=== PATIENT | male | born 1990 | race Caucasian/White ===

== ENCOUNTER 2021-03-22 07:22 | Inpatient (IN) | payer MEDICAID ==
[~2021-03-22 07:22] MED LIST: Dexamethasone 4 MG/ML SDV ONE; Glycopyrrolate 0.2 MG/ML 5 ML MDV ONE; Midazolam 1 MG/ML 2 ML SDV ONE; Ondansetron 4 MG/2 ML SDV ONE; Propofol 200 MG/20 ML SDV ONE; Rocuronium 50 MG/5 ML Vial ONE; cefOXitin 2 GM Vial ONE; fentaNYL 250 MCG/5 ML SDV ONE
[2021-03-22] MEDS ORDERED: Acetaminophen 500 MG Tab PO ONE (07:45)
[2021-03-22] MEDS ORDERED: Celecoxib 200 MG Cap PO ONE (08:00)
[2021-03-22] MEDS ORDERED: Dextrose 5%-Lactated Ringers 1,000 ML IV SCH ×2 (08:00→13:30)
[2021-03-22 08:20] LABS: HEMOGLOBIN A1C 5.5 % (4.5-6.2)
[2021-03-22] MEDS ORDERED: Albuterol/Ipratropium 3.0-0.5 MG/3 ML Neb Soln NEB ONE (09:00)
[2021-03-22] MEDS ORDERED: Scopolamine 1.5 MG Transdermal Patch TOP SCH (09:00)
[2021-03-22] MEDS ORDERED: cefOXitin 2 GM in Sodium Chloride 0.9% 50 ML IV ONE (09:15)
[2021-03-22] MEDS ORDERED: Ketamine 20 MG in Sodium Chloride 0.9% 19.8 ML IV SCH (09:30)
[2021-03-22] MEDS ORDERED: Ketamine 500 MG/5 ML MDV IV SCH (09:30)
[2021-03-22] MEDS ORDERED: Rocuronium 50 MG/5 ML Vial ONE ×2 (09:52→10:46)
[2021-03-22] MEDS ORDERED: Sugammadex Sodium 200 MG/2 ML VIAL ONE (10:46)
[2021-03-22] MEDS ORDERED: fentaNYL 100 MCG/2 ML SDV ONE ×2 (10:51→11:51)
[2021-03-22] MEDS ORDERED: Labetalol 20 MG/4 ML Syringe ONE (11:20)
[2021-03-22] MEDS ORDERED: Propofol 200 MG/20 ML SDV ONE (11:52)
[2021-03-22] MEDS ORDERED: Insulin Lispro 100 Unit/ML 3 ML KwikPen SUBCUT ONE (12:29)
[2021-03-22] MEDS ORDERED: 50% Dextrose in Water 50 ML Syringe IVPUSH PRN ×2 (12:29→14:00)
[2021-03-22] MEDS ORDERED: Glucagon,Human Recombinant 1 MG Vial IM PRN ×2 (12:29→14:00)
[2021-03-22] MEDS ORDERED: fentaNYL 100 MCG/2 ML SDV IVPUSH ONE (12:32)
[2021-03-22] MEDS ORDERED: hydrOXYzine HCL 100 MG/2 ML SDV IM ONE (12:32)
[2021-03-22] MEDS ORDERED: Cyclobenzaprine 10 MG Tab PO PRN (13:34)
[2021-03-22] MEDS ORDERED: Albuterol/Ipratropium 3.0-0.5 MG/3 ML Neb Soln INH PRN (13:37)
[2021-03-22] MEDS ORDERED: Lactated Ringers 1,000 ML IV SCH (13:45)
[2021-03-22] MEDS ORDERED: Acetaminophen 500 MG Tab PO PRN (14:00)
[2021-03-22] MEDS ORDERED: Metoclopramide 10 MG/2 ML SDV IVPUSH PRN (14:00)
[2021-03-22] MEDS ORDERED: diphenhydrAMINE 50 MG/ML SDV IVPUSH PRN (14:00)
[2021-03-22] MEDS ORDERED: Ondansetron 4 MG/2 ML SDV IVPUSH PRN (14:00)
[2021-03-22] MEDS ORDERED: HYDROmorphone 1 MG/ML Syringe IV PRN (14:00)
[2021-03-22] MEDS ORDERED: hydrOXYzine HCL 100 MG/2 ML SDV IM PRN (14:00)
[2021-03-22] MEDS ORDERED: HYDROmorphone 0.5 MG/0.5 ML Syringe IVPUSH PRN (14:00)
[2021-03-22] MEDS: Labetalol 20 MG/4 ML Syringe IVPUSH PRN ×2 (14:11→14:26)
[2021-03-22] MEDS: traMADol 50 MG Tab PO PRN ×2 (14:43→21:49)
[2021-03-22] MEDS: Acetaminophen 500 MG Tab PO SCH ×2 (15:49→23:05)
[2021-03-22] MEDS: Pantoprazole 40 MG Vial IVPUSH SCH (15:49)
[2021-03-22] MEDS: cefOXitin 2 GM in Sodium Chloride 0.9% 50 ML IV SCH ×2 (15:55→21:03)
[2021-03-22] MEDS ORDERED: MVI, Adult with Vitamin K 10 ML, Thiamine 200 MG, Zinc/Copper/Manganese/Selenium 1 ML i... IV SCH ×4 (16:00)
[2021-03-22] MEDS: Insulin Lispro 100 Unit/ML 3 ML KwikPen SUBCUT SCH ×2 (16:40→21:45)
[2021-03-22] MEDS: oxyCODONE 5 MG Tab PO PRN (17:41)
[2021-03-22] MEDS: Heparin Sodium 5,000 Units/ML Vial SUBCUT SCH (21:02)
[2021-03-22] MEDS: Montelukast 10 MG Tab PO SCH (21:02)
[2021-03-23] MEDS ORDERED: Iopamidol 612 MG/ML 50 ML SDV PO STA (03:19)
[2021-03-23] MEDS: traMADol 50 MG Tab PO PRN ×2 (03:55→20:57)
[2021-03-23] MEDS: cefOXitin 2 GM in Sodium Chloride 0.9% 50 ML IV SCH ×4 (03:56→21:04)
[2021-03-23] MEDS: Insulin Lispro 100 Unit/ML 3 ML KwikPen SUBCUT SCH ×4 (04:35→21:01)
[2021-03-23] MEDS ORDERED: Ondansetron 4 MG Tab.DIS PO PRN (07:24)
--- NOTE | 2021-03-23 07:25 | PCM.SURGPN ---
- General Info Date of Service: 03/23/21 Date of Surgery/Procedure: 03/22/21 POD#: 2 Functional Status: Reports: Pain Controlled - Review of Systems General: Denies: Fever, Weakness, Chills HEENT: Reports: No Symptoms Pulmonary: Denies: Shortness of Breath, Cough Gastrointestinal: Denies: Nausea, Vomiting Genitourinary: Denies: Dysuria, Frequency, Urgency Systems Review Comment:: Patient is post-op day 2 laparoscopic Toña-en-Y gastric bypass. His pain is controlled and tolerating step 1 diet. Oral intake is 345 mL and output 1775 mL. Vitals and blood sugar have been stable. - Patient Data Vitals - Most Recent: Last Vital Signs Temp 99.1 F 03/23/21 07:00 Pulse 106 H 03/23/21 07:00 Resp 18 03/23/21 07:00 BP 152/90 H 03/23/21 07:00 Pulse Ox 94 L 03/23/21 07:00 Weight - Most Recent: 306 lb 6 oz I&O - Last 24 Hours: Intake & Output 03/22/21 03/23/21 03/23/21 22:59 06:59 14:59 Intake Total 864 1148 Output Total 1010 805 Balance -146 343 Lab Results Last 24 Hrs: - Exam Wound/Incisions: Dressing Dry and Intact General: Alert, Oriented, Cooperative Lungs: Clear to Auscultation, Normal Respiratory Effort Cardiovascular: Regular Rate, Regular Rhythm Extremities: Normal Inspection Skin: Warm, Dry, Intact Physical Findings Comment:: BIRDIE drain put out 60 mL of a light pink fluid. Sepsis Event Note - Evaluation Sepsis Screening Result: No Definite Risk - Focused Exam Vital Signs: Vital Signs Temp Temp Pulse Resp BP Pulse Ox 03/23/21 07:00 99.1 F 106 H 18 152/90 H 94 L 03/23/21 03:25 99.4 F 18 154/93 H 94 L 03/22/21 23:02 99.1 F 95 16 141/75 H 93 L 03/22/21 19:34 98.8 F 97 18 142/81 H 92 L - Problem List Review Problem List Initiated/Reviewed/Updated: Yes - My Orders Last 24 Hours: - Assessment Assessment (Free Text/Narrative):: 1. Laparoscopic Gastric Bypass Toña-en-Y - Plan Plan (Free Text/Narrative):: 1. Discontinue Accu-checks 2. Upper GI completed this AM and no concerns noted. 3. May advanced to step 2 diet 4. Discontinue D5LR 5. Decrease lactated ringer to 100 ml per hr 6. Following ENERGY protocol 7. Continue ambulating and using incentive spirometry 8. Will follow up in AM or as needed
[2021-03-23] MEDS ORDERED: hydrOXYzine HCl 25 MG Tab PO PRN (07:26)
[2021-03-23] MEDS ORDERED: Lactated Ringers 1,000 ML IV SCH (07:30)
[2021-03-23] MEDS: Acetaminophen 500 MG Tab PO SCH ×3 (07:36→23:22)
--- NOTE | 2021-03-23 07:51 | OR ---
DATE OF PROCEDURE: 03/22/2021 SURGEON: Griffin Quintana MD PREOPERATIVE DIAGNOSIS: Morbid obesity. POSTOPERATIVE DIAGNOSES: 1. Morbid obesity. 2. Marked hepatomegaly. 3. Paraesophageal diaphragmatic hernia. 4. Mediastinal lipoma. 5. Area of stomach ischemic after pouch formation. OPERATIVE PROCEDURES: Diagnostic laparoscopy with: 1. Laparoscopic Toña-en-Y gastric bypass with long limb gastroenterostomy (49447). 2. Rex-Cut needle liver biopsy (42772). 3. Repair of paraesophageal diaphragmatic hernia (73674). 4. Excision of mediastinal lipoma (55654). 5. Partial gastrectomy (72282). ANESTHESIA: General. MULTIGRAPH OPERATOR: LESLY Irby; and LD Myers. INDICATIONS FOR PROCEDURE: This is a 30-year-old male presenting with longstanding morbid obesity, increasingly significant comorbidities. After preoperative evaluation and discussion, he wished to proceed with a gastric bypass procedure. Potential risks of the procedure including bleeding, infection, injury to underlying viscera, problems with bowel obstruction over time, leaks from various GI tract closures were all reviewed along with the remote possibility of cardiopulmonary, septic, or hemorrhagic complications leading to , and the patient wishes to proceed. DETAILS OF PROCEDURE: The patient was taken to the operating room and placed in a supine position. After general endotracheal anesthesia was induced, he was converted to a lithotomy position and the abdomen prepped and draped. 15 cm inferior and 5 cm left of the xiphoid process, a transverse incision was made and the peritoneal cavity entered under direct vision with an Optiview trocar, inflated to 15 mmHg pressure with CO2. Laparoscope was then reinserted. No underlying trocar insertion site injuries were seen. Following this, bilateral transversus abdominis plane blocks were placed and 5 additional trocars were placed across the upper and mid abdomen. The liver was noted to be markedly enlarged and fatty infiltrated. Rex-Cut needle biopsies were obtained from left lobe of liver. Minimal bleeding from the biopsy sites was controlled with electrocautery. At this point, the omentum was divided in the midline up to the level of the transverse colon. This allowed identification of small bowel with ligament of Treitz. Small bowel was then traced out 125 cm distal to that point, where it was divided transversely with a NAHOMI stapler. Small bowel was then traced out additional 150 cm where the [id number] enteroenterostomy was accomplished with an internal firing of the Endo-NAHOMI 60 mm stapler. Common opening was closed transversely with the same stapler and angles anastomosed and mesenteric defect approximated with some 0 Ethibond stitch and fibrin sealant. Divided end of the Toña limb was then from the mesentery for a few centimeters, which allowed an antecolic position of the Toña limb up to the level of the gastroesophageal junction without tension. The liver was then retracted anteriorly. The patient was noted to have a moderate-sized paraesophageal diaphragmatic hernia. This was reduced and the peritoneum overlying it was incised and reflected downward. An anterior repair of the diaphragmatic hernia was then accomplished with 0 Ethibond sutures reinforced with PTFE pledgets. During the course of the dissection, the patient had a fairly large mediastinal lipoma which was excised to facilitate a more adequate repair of the diaphragmatic hernia. At this point, the gastrointestinal balloon catheter was inflated to 15 mL and pulled up snugly against the EG junction, gastric wall over the apex. The balloon was then marked with electrocautery and balloon catheter deflated and pulled up into the esophagus. The lesser omental tissue was then divided adjacent to the cauterized lorena at the gastric cardia allowing dissection behind the stomach at that level. Pouch formation was initiated with a transverse firing of the NAHOMI stapler at the level of the cauterized lorena at the gastric cardia and then continued up to and through the angle of His with additional NAHOMI firing. Upon completion of pouch, both staple lines were noted to be intact. There was an area of ischemia on the edge of the gastric pouch thus requiring additional revision of that with the excision of some additional stomach with a NAHOMI stapler, and that point, all the remaining gastric tissue appeared adequately perfused. The anvil of a 25 mm EEA stapler was then attached to [place] sump type tube. The latter was brought down through the mouth and taken out through a small opening in the gastric pouch, allowing the anvil likewise to be pulled down to within the gastric pouch. The divided end of the Toña limb was then opened and main body of the EEA stapler was passed several centimeters into the lumen of the small bowel, brought up, the anvil united with it, thus creating the gastrojejunostomy. Upon removal of the stapler, double donuts were noted within it. Small bowel was closed off with a vascular staple line. Gastrojejunostomy was then reinforced with some 3-0 Vicryl seromuscular stitch along with fibrin sealant. A leak test was accomplished with injection of 120 mL of air in the gastric pouch while it was submerged with cefoxitin-containing saline solution. No leaks were identified. A 10-Nepali round Amado-Angel drain was then placed through the left lateral trocar site and positioned adjacent to the gastrojejunostomy and from there up into the splenic fossa. The trocars were removed and the peritoneal cavity deflated. The incisions were closed with some 4-0 Vicryl skin stitch, which was also used to fix the drain. The patient was taken to the recovery room in satisfactory condition. Physician planning assistant, Kesha Sanon, played an essential role in assisting in this case, helping to position the patient, retract structures as needed, as well as suturing and cutting sutures when indicated. Her presence improved patient safety and decreased operative time. Griffin Quintana MD /[id number]
[2021-03-23] MEDS: Celecoxib 200 MG Cap PO SCH ×2 (08:47→21:00)
[2021-03-23] MEDS: Heparin Sodium 5,000 Units/ML Vial SUBCUT SCH ×2 (08:49→21:00)
[2021-03-23] MEDS: SCOPOLAMINE PATCH CHECK TOP SCH (09:05)
--- NOTE | 2021-03-23 09:19 | CR ---
[facility]I [facility] HISTORY: Postbariatric surgery FINDINGS: Patient swallowed water-soluble contrast. Upright views of the abdomen show no evidence of extravasation or obstruction. There is a surgical drain in the left upper quadrant. IMPRESSION: Status post bariatric surgery No extravasation or obstruction seen
[2021-03-23] MEDS: oxyCODONE 5 MG Tab PO PRN (15:01)
[2021-03-23] MEDS ORDERED: MVI, Adult with Vitamin K 10 ML, Thiamine 200 MG, Zinc/Copper/Manganese/Selenium 1 ML i... IV SCH ×4 (16:00)
[2021-03-23] MEDS: Pantoprazole 40 MG Vial IVPUSH SCH (16:06)
[2021-03-23] MEDS: Montelukast 10 MG Tab PO SCH (21:00)
[2021-03-24] MEDS: traMADol 50 MG Tab PO PRN ×2 (03:54→09:58)
[2021-03-24] MEDS: Celecoxib 200 MG Cap PO SCH (08:19)
[2021-03-24] MEDS: Acetaminophen 500 MG Tab PO SCH (08:19)
[2021-03-24] MEDS: SCOPOLAMINE PATCH CHECK TOP SCH (08:20)
[2021-03-24] MEDS: Heparin Sodium 5,000 Units/ML Vial SUBCUT SCH (08:20)
[2021-03-24] MEDS ORDERED: Cyanocobalamin (Vitamin B12) 1,000 MCG/ML SDV IM ONE (09:00)
--- NOTE | 2021-03-25 11:51 | DISCH ---
FINAL DIAGNOSES: 1. Morbid obesity. 2. Marked hepatomegaly. 3. Paraesophageal diaphragmatic hernia. 4. Mediastinal lipoma. 5. Area of stomach ischemia, status post formation of gastric pouch. SECONDARY DIAGNOSES: 1. Asthma. 2. Allergic rhinitis. 3. Hyperlipidemia. 4. Prediabetes. 5. History of depression. OPERATIVE PROCEDURES: Done on 03/22, diagnostic laparoscopy with: 1. Laparoscopic Toña-en-Y gastric bypass, long-limb gastrostomy. 2. Rex-Cut needle liver biopsy. 3. Repair of paraesophageal diaphragmatic hernia. 4. Excision of mediastinal lipoma. 5. Partial gastrectomy. SUMMARY: This is a 30-year-old presenting with longstanding morbid obesity. After preoperative evaluation and discussion, he wished with a gastric bypass procedure. This was done on the day of procedure along with the additional procedures being done simultaneously as listed above. Postoperatively, he has had no significant problems with prediabetes monitor his blood sugars for 24 hours postoperatively and they were all in the 134 to 96 range while taking in some diet. Otherwise, the patient tolerated a step-2 diet and was discharged home. He will be on his usual medications other than not having to take Naprosyn but instead take Celebrex as needed for arthritic-type pain. Otherwise, he will take 1 g p.o. q.6 hours p.r.n. and tramadol 50 mg p.o. q.6 hours p.r.n. pain, #18. He will be instructed to stay on the step-2 diet until first appointment which will be with Kesha Sanon at [facility] on Friday on 04/02/2021. /[id number]
== END 2021-03-24 11:05 | disposition home or self-care (01) | DRG 621 ==
LOC: JP.SDS 07:22 → EDSTATUS 08:15 → JP.MS 12:15
PROVIDERS: ADMIT Surgery; ATTEND Surgery
PROC: 0D164ZA Bypass Stomach to Jejunum, Percutaneous Endoscopic Approach (ICD-10-PCS; principal; 2021-03-22)
PROC: 0FB24ZX Excision of Left Lobe Liver, Percutaneous Endoscopic Approach, Diagnostic (ICD-10-PCS; 2021-03-22)
PROC: 0BQT4ZZ Repair Diaphragm, Percutaneous Endoscopic Approach (ICD-10-PCS; 2021-03-22)
PROC: 0DB64ZZ Excision of Stomach, Percutaneous Endoscopic Approach (ICD-10-PCS; 2021-03-22)
DX: E66.01 Morbid (severe) obesity due to excess calories (principal); R16.0 Hepatomegaly, not elsewhere classified; K44.9 Diaphragmatic hernia without obstruction or gangrene; D17.4 Benign lipomatous neoplasm of intrathoracic organs; K31.9 Disease of stomach and duodenum, unspecified; J45.909 Unspecified asthma, uncomplicated; E78.5 Hyperlipidemia, unspecified; F32.A Depression, unspecified; R73.03 Prediabetes; Z88.0 Allergy status to penicillin; Z88.1 Allergy status to other antibiotic agents; G43.909 Migraine, unspecified, not intractable, without status migrainosus; Z98.890 Other specified postprocedural states; Z68.42 Body mass index [BMI] 45.0-49.9, adult
CPT/HCPCS: 36415; 74240; 74240-26; 80053; 82947; 83036; 83735; 84100; 85025; 86850; 86900; 86901; 94640; A9270-GY; C9113; J0171; J0694; J1100; J1644; J1815; J2250; J2405; J2704; J2795; J3010; J3410; J3411; J3420; J3490; J7120; J7121; J7620-GY; Q9967

== ENCOUNTER 2021-05-11 05:56 | Day surgery (SDC) | payer MEDICAID ==
[2021-05-11] MEDS ORDERED: Lactated Ringers 1,000 ML IV ONE (06:30)
[2021-05-11] MEDS ORDERED: Glycopyrrolate 0.2 MG/ML 2 ML SDV IVPUSH ONE (07:00)
[2021-05-11] MEDS ORDERED: Cyanocobalamin (Vitamin B12) 1,000 MCG/ML SDV IM ONE (07:00)
[2021-05-11] MEDS ORDERED: fentaNYL 100 MCG/2 ML SDV ONE (07:10)
[2021-05-11] MEDS ORDERED: Midazolam 1 MG/ML 2 ML SDV ONE (07:10)
[2021-05-11] MEDS ORDERED: Propofol 200 MG/20 ML SDV ONE (07:10)
[2021-05-11] MEDS ORDERED: Dexamethasone 4 MG/ML SDV ONE (07:22)
[2021-05-11] MEDS ORDERED: MVI, Adult with Vitamin K 10 ML, Thiamine 200 MG, Zinc/Copper/Manganese/Selenium 1 ML i... IV ONE ×4 (07:30)
[2021-05-11] MEDS ORDERED: Thiamine 200 MG/2 ML MDV IV ONE (08:30)
== END 2021-05-11 10:15 | disposition home or self-care (01) ==
LOC: JP.SDS 05:56
PROVIDERS: ATTEND Surgery
DX: K91.89 Other postprocedural complications and disorders of digestive system (principal); Z98.84 Bariatric surgery status; R73.03 Prediabetes
CPT/HCPCS: 43245; C1726; J1100; J2250; J2704; J3010; J3411; J3420; J3490; J7120